=== PATIENT | male | born 1980 | race Caucasian/White ===

== ENCOUNTER 2017-11-01 09:13 | Emergency (ER) | payer MEDICAID, SELFPAY ==
[2017-11-01 09:14] VITALS: BP 130/98; PULSE 105; RESP 20; TEMP 36.4; O2SAT 99; BMI 23.6
--- NOTE | 2017-11-01 09:26 | ED.DCSUM_ITS ---
- ER Visit Summary Date of Service: 11/01/17 Chief Complaint: Anxiety/abdominal pain History of Present Illness: The patient is a 37 M who presents the above symptoms. He states he started having some vomiting last night. He also complains of some diarrhea and left lower quadrant abdominal pain. He started having anxiety attack this morning. He does not take any anxiety medications at home. He denies fevers. He is not suicidal or homicidal. Physical Examination: Vital signs are reviewed. HEENT exam unremarkable. Heart is regular rate and rhythm. Lungs are clear to auscultation. Abdomen is soft with mild left lower quadrant tenderness to palpation. No guarding or rebound tenderness extremities reveal no edema. Neurologic exam normal. Patient is tearful and does appear anxious at bedside. Denies being suicidal or homicidal Test Results: None indicated Emergency Department Course and Treatment: Patient was treated with oral Bentyl , Zofran and Ativan Treatment Plan: Patient feels much better after medications. I feel this likely all stems from anxiety. I will discharge him with Bentyl, Zofran as well as Vistaril. He will call his PCP for follow-up Disposition: Discharge Impression: Anxiety This note was generated with [employer] dictation software. It may contain incorrect words, spelling, and punctuation that were not noted in review of the chart prior to signing ED Disposition - Plan for ED Patient: Chief Complaint: Anxiety Referrals: Wai Fernandez MD [Primary Care Provider] -
[2017-11-01] MEDS: Ondansetron ODT 4 MG Tablet 8 MG PO (09:28)
[2017-11-01] MEDS: LORazepam 1 MG Tablet PO (09:37)
[2017-11-01] MEDS: Dicyclomine 10 MG Capsule 20 MG PO (09:37)
--- NOTE | 2017-11-01 10:15 | ED.DEP ---
ED Disposition - Plan for ED Patient: Disposition: Home or Assisted Living Chief Complaint: Anxiety Instructions: ED Panic Attack Prescriptions: Ondansetron [Zofran Odt] 4 mg PO Q8H PRN PRN #10 tab PRN Reason: Nausea Dicyclomine HCl [Bentyl] 20 mg PO TIDAC #20 cap HydrOXYzine EDGAR [Vistaril] 50 mg PO TID PRN PRN #30 cap PRN Reason: Anxiety Referrals: Wai Fernandez MD [Primary Care Provider] -
[2017-11-01 10:28] VITALS: BP 116/74; PULSE 91; RESP 16; O2SAT 95
== END 2017-11-01 10:29 | disposition home or self-care (01) ==
PROVIDERS: Emergency Provider Emergency Medicine; Family Provider Family Medicine; PCP Family Medicine
DX: F41.9 Anxiety disorder, unspecified (principal)
CPT/HCPCS: 96372; 99283

== ENCOUNTER 2020-11-15 11:06 | Emergency (ER) | payer SELFPAY ==
[2020-11-15 11:07] VITALS: BP 146/95; PULSE 74; RESP 18; TEMP 36.3; O2SAT 97; BMI 20.7
[2020-11-15 11:20] VITALS: BP 147/97; PULSE 74; RESP 17; TEMP 36.6; O2SAT 97
[2020-11-15] MEDS: Lidocaine/Epi/Tetracaine 50 ML 1 APPLIC TOPICAL (11:33)
[2020-11-15 11:45] VITALS: BP 137/79; PULSE 70; RESP 16; O2SAT 97
--- NOTE | 2020-11-15 11:46 | ED.DCSUM_ITS ---
History of Present Illness Chief Complaint: Laceration Informant: Patient Occurred: Today - JPTA Mechanism/Context: Incised - accidentally on metal microwave bracket Context: Sudden Onset Timing: Continuous Quality of Pain: - - sore Location: R thumb Current Severity: Mild Maximum Severity: Moderate Worsened by: palpation Relieved by: leaving alone Associated Symptoms: Negative for: Parasthesia, Weakness, Loss of Funtion Narrative: Patient was installing a new microwave in his parents home, and removing the old one accidentally cut his thumb on a metal bracket attached to it. [id number]. Decent amount of bleeding from it that is now controlled. Tetanus Immunization: 5-10 years Past Medical History - Allergies and Home Meds Allergies/Adverse Reactions: Allergies No Known Allergies Allergy (Verified 11/15/20 11:08) Primary Care Physician: Wai Fernandez MD [Primary Care Provider] - Past Medical History: None Smoking Status: Current every day smoker Review of Systems Musculoskeletal: Reports: Extremity Pain. Denies: Neck pain, Back pain Skin: Reports: Wounds. Denies: Rash Neurological: Denies: Headache, Weakness, Numbness Physical Exam Vital Signs/Narrative: Vital Signs Temp Pulse Resp BP Pulse Ox 11/15/20 11:45 70 16 137/79 H 97 11/15/20 11:20 98 F 74 17 147/97 H 97 11/15/20 11:07 97.3 F L 74 18 146/95 H 97 General: Well nourished, Well developed, - - Well-appearing no distress Head: Normocephalic, Atraumatic Extremeties: Full range of motion of all joints and digits right upper extremity Skin: Normal color, No rash, Trauma - 1.5 cm full-thickness but relatively shallow laceration to the ulnar aspect of the distal phalanx right thumb pad. Laceration goes to the nail but does not involve the nail or the nail bed. Does not involve the DIPJ. Clean, linear. No active bleeding. Neurological: Alert, Oriented x3, Cranial nerves II-XII grossly intact, Normal Strength, Normal Sensation, Normal Gait Psychological: Normal affect, Normal Mood Diagnostic/Tx/Re-eval - Medical Decision Making Initially the patient decided that he did not want sutures if he did not have to, but after we were able to locally anesthetize the area with LET, he was okay with a single suture which was placed without causing significant discomfort and is holding the wound together well. Suture removal recommended in approximately 10 days. Procedures - Lacerations R thumb Length: 1.5 cm Depth: Sub Q Shape: Linear Prep: Sterile Conditions, Chlorhexadine Laceration repair: Lidocaine with epi - Topical only, - - Scrubbed with chlorhexidine and wound conduit cleaner Number of Sutures/[place]: 1 Suture Information: Simple, 5-0 ED Disposition - Plan for ED Patient: Disposition: Home or Assisted Living Diagnosis: Laceration of right thumb without foreign body without damage to nail Instructions: ED Laceration, Hand: All Closures Referrals: Wai Fernandez MD [Primary Care Provider] - 10 Day for suture removal
--- NOTE | 2020-11-15 11:46 | ED.RN ---
LET applied. Wound irrigated with NS and cleansed with antiseptic solution and then rinsed.Bandage and bacitracin applied and wrapped/taped. Tolerated well, stating he did not feel more pain during process.
[2020-11-15 12:14] VITALS: BP 140/78; PULSE 66; RESP 19; TEMP 36.8; O2SAT 97
[2020-11-15 12:15] VITALS: BP 140/78; PULSE 70; RESP 18; TEMP 36.8; O2SAT 97
== END 2020-11-15 12:16 | disposition home or self-care (01) ==
PROVIDERS: Emergency Provider Emergency Medicine; PCP Family Medicine
DX: S61.011A Laceration without foreign body of right thumb without damage to nail, initial encounter (principal); W26.8XXA Contact with other sharp object(s), not elsewhere classified, initial encounter; Y93.9 Activity, unspecified; Y92.89 Other specified places as the place of occurrence of the external cause; Y99.9 Unspecified external cause status; F17.200 Nicotine dependence, unspecified, uncomplicated
CPT/HCPCS: 12001; 99282

== ENCOUNTER → 2024-12-19 | Outpatient (CLI) | payer BC, SELFPAY ==
[2024-12-19 15:35] LABS: Absolute Lymphocyte Count 1.85 X10^3/uL (0.83-4.51); Absolute Neutrophil Count 7.5 X10^3/uL (2.0-7.7); Basophil# 0.03 X10^3/uL; Basophil% 0.3 % (0-1); Eosinophil# 0.09 X10^3/uL; Eosinophils% 0.9 % (0-5); Hematocrit 45.7 % (40-54); Hemoglobin 15.6 g/dL (13.0-16.5); Lymphocyte # 1.85 X10^3/ul (0.83-4.51); Lymphocyte % 18.5 % (19-41); Mean Corp Hgb Conc 34.1 g/dL (32-36); Mean Corpuscular Hgb 32.1 pg (27.0-32.0); Mean Platelet Vol. 9.6 fl (6.2-12.0); Monocyte# 0.54 X10^3/uL; Monocyte% 5.4 % (0-10); NRBC Flagged by Analyzer 0 % (0-5); Neutrophil # 7.47 X10^3/uL (2.7-7.7); Neutrophil % 74.5 % (47-70); Platelet Count 276 K/mm3 (150-450); RBC Distribution Width CV 12.8 % (11.6-14.6); RBC Distribution Width SD 44.2 fl (35.1-43.9); Red Blood Count 4.86 M/mm3 (4.6-6.2)
[2024-12-19 17:55] LABS: ALB/GLOB Ratio 1.7 RATIO (0.9-2.4); AST(SGOT) 26 U/L (<=37); Alanine Aminotransfer ALT/SGPT 35 U/L (<=46); Albumin, Serum 4.4 g/dL (3.5-5.0); Alkaline Phosphatase 66 U/L (40-129); Anion Gap 12 (5-15); BUN 11 mg/dL (4-19); BUN/Creat Ratio 12.5 RATIO (10-20); Calcium,Total 9.5 mg/dL (7.6-11.0); Carbon Dioxide 26.9 mmol/L (21.0-32.0); Chloride 101 mmol/L (98-108); Cholesterol 246 mg/dL (<=200); Creatinine, Serum 0.84 mg/dL (0.70-1.20); EST Glomerular Filtration Rate 109 (>60); Globulin 2.6 g/dL (2.2-4.2); Glucose 100 mg/dL (70-99); High Density Lipoprotein 37 mg/dL; Low Density Lipoprotein Calc. 191 mg/dL; PSA,Total - Annual Screen 1.45 ng/mL (0.02-4.00); Potassium 3.9 mmol/L (3.3-5.1); Sodium Level 140 mmol/L (133-145); Total Bilirubin 0.35 mg/dL (0.00-1.30); Triglycerides 87 mg/dL; Very Low Density Lipoprotein 17 mg/dL (5-40); cholesterol:hdl ratio screen 6.58
== END | disposition home or self-care (01) ==
LOC: BFHLAB 11:48
PROVIDERS: PCP Family Medicine; Visit Provider Nurse Practitioner Family
DX: Z00.01 Encounter for general adult medical examination with abnormal findings (principal); Z12.5 Encounter for screening for malignant neoplasm of prostate
CPT/HCPCS: 36415; 80053; 80061; 84153; 85025; G0103

== ENCOUNTER → 2025-06-27 | Outpatient (CLI) | payer BC, SELFPAY ==
--- NOTE | 2025-06-27 15:49 | RAD_ITS ---
PROCEDURE: KNEE 4 OR MORE VIEWS 06/27/2025 REASON FOR EXAM: PAIN IN KNEE TECHNIQUE: Procedure Code: RADKN Modality: DX Procedure: KNEE 4 OR MORE VIEWS Laterality: Right COMPARISON: None FINDINGS: There is no evidence of fracture or dislocation. There is mild arthritis of the patellofemoral joint. 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 There is no arthritis of the medial joint space compartment of the knee. There is no arthritis of the lateral joint space compartment of the knee. There is no knee joint effusion. The periarticular soft tissues are normal. 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 Reading Location: [id number]
--- NOTE | 2025-06-27 15:50 | RAD_ITS ---
PROCEDURE: KNEE 4 OR MORE VIEWS 06/27/2025 REASON FOR EXAM: PAIN IN KNEE TECHNIQUE: Procedure Code: RADKN Modality: DX Procedure: KNEE 4 OR MORE VIEWS Laterality: Left COMPARISON: None FINDINGS: Bones: There is normal mineralization of the osseous structures. There are no fractures or dislocations. Joints: Joint spaces are well preserved. Effusion: There is no suprapatellar bursa effusion. Soft tissues: There is no soft tissue swelling. RAD/Knee 4 or More Views IMPRESSION: Unremarkable left knee study. Reading Location: [id number]
== END | disposition home or self-care (01) ==
LOC: MTRAD 15:48
PROVIDERS: PCP Family Medicine; Referring Provider Nurse Practitioner Family; Visit Provider Nurse Practitioner Family
DX: M25.561 Pain in right knee (principal); M25.562 Pain in left knee
CPT/HCPCS: 73564